=== PATIENT | male | born 1960 | race Caucasian/White ===

== ENCOUNTER 2018-05-24 12:23 | Observation (INO) | payer BC ==
[~2018-05-24] VITALS: Ht 172.7 cm; Wt 122.5 kg
[~2018-05-24 12:23] MED LIST: ASPIRIN325 MG PO; CALAN SR180 MG PO; FENOFIBRATE PO; FENOFIBRATE67 MG PO; NORCO 7.5-3251 EACH PO; TRICOR145 MG PO
[2018-05-24] MEDS ORDERED: NITROGLYCERIN 2% OINT 1 GM PKT TOP ONE (12:45)
[2018-05-24] MEDS ORDERED: METOPROLOL TARTRATE INJ 1 MG/ML VIAL IV SCH (12:45)
[2018-05-24] MEDS ORDERED: ONDANSETRON HCL INJ 2 MG/ML VIAL IV PRN ×2 (12:45→14:30)
[2018-05-24] MEDS ORDERED: FAMOTIDINE 20 MG/2 ML VIAL IV ONE (12:45)
[2018-05-24 12:57] LABS: BASOPHILS # (AUTO) 0.1 (0.0-0.1); BASOPHILS % 0.8 % (0.0-1.0); EOSINOPHILS # (AUTO) 0.2 (0.0-0.4); EOSINOPHILS % 1.2 % (0.0-6.0); HEMATOCRIT 46.1 % (38.2-49.6); HEMOGLOBIN 15.8 g/dL (14.0-18.0); LYMPHOCYTES # (AUTO) 1.5 (1.0-3.2); LYMPHOCYTES % 10.7 % (18.0-39.1); MEAN CORPUSCULAR HEMOGLOBIN 32.8 pg (28-32); MEAN CORPUSCULAR HGB CONC 34.3 g/dL (31-35); MEAN CORPUSCULAR VOLUME 95.6 fL (81-99); MONOCYTES # (AUTO) 1.3 (0.2-0.8); MONOCYTES % 9.5 % (4.4-11.3); NEUTROPHILS # (AUTO) 10.5 (2.1-6.9); NEUTROPHILS % 76.8 % (38.7-80.0); PLATELET COUNT 358 x10e3/uL (140-360); RED BLOOD COUNT 4.82 x10e6/uL (4.3-5.7); RED CELL DISTRIBUTION WIDTH 14.6 % (11.7-14.4)
[2018-05-24 13:19] LABS: ALANINE AMINOTRANSFERASE 21 IU/L (0-55); ALBUMIN 4.2 g/dL (3.5-5.0); ALBUMIN/GLOBULIN RATIO 1.1 (0.8-2.0); ALKALINE PHOSPHATASE 37 IU/L (40-150); AMYLASE 56 U/L (25-125); ANION GAP 15.5 mmol/L (8-16); BLOOD UREA NITROGEN 19 mg/dL (7-26); BUN/CREATININE RATIO 17 (6-25); CALCIUM 10.9 mg/dL (8.4-10.2); CARBON DIOXIDE 22 mmol/L (22-29); CHLORIDE 108 mmol/L (98-107); CREATININE, SERUM 1.09 mg/dL (0.72-1.25); EST GLOMERULAR FILTRATION RATE > 60 ML/MIN (60-); GLUCOSE 96 mg/dL (74-118); LIPASE 46 U/L (8-78); MAGNESIUM 2.2 MG/DL (1.3-2.1); POTASSIUM 3.5 mmol/L (3.5-5.1); SODIUM 142 mmol/L (136-145)
--- NOTE | 2018-05-24 13:24 | Diagnostic Imaging Report ---
PROCEDURE: CHEST SINGLE (PORTABLE) COMPARISON: None. INDICATIONS: CHEST PAIN FINDINGS: LUNGS: No consolidations or edema. PLEURA: No effusions or pneumothorax. HEART \T\ MEDIASTINUM: Prominent cardiomediastinal silhouette likely related to the technique. Prominent right epicardial fat pad. BONES \T\ SOFT TISSUES: No acute findings. CONCLUSION: No acute thoracic abnormality. Robson Nolasco D.O. Dictated by: Robson Nolasco D.O. on 05/24/2018 at 13:29 Electronically approved by: Robson Nolasco D.O. on 05/24/2018 at 13:29
[2018-05-24] MEDS ORDERED: ASPIRIN 325 MG TAB PO ONE (13:30)
[2018-05-24] MEDS ORDERED: ASPIRIN 81 MG CHEW TAB PO ONE ×3 (13:30→14:30)
[2018-05-24] MEDS ORDERED: ATORVASTATIN 20 MG TAB PO ONE (13:30)
[2018-05-24] MEDS: METOPROLOL TARTRATE 25 MG TAB PO SCH ×2 (13:47→20:02)
[2018-05-24] MEDS ORDERED: HYDROMORPHONE 1MG/1ML INJ IV PRN (14:30)
--- NOTE | 2018-05-24 14:33 | Consultation ---
DATE OF CONSULTATION: May 24, 2018 REQUESTING PHYSICIAN: Dr. Zepeda. REASON FOR CONSULTATION: Chest pain. HISTORY OF PRESENT ILLNESS: Mr. Levy is a 57-year-old gentleman with past medical history as listed below. Apparently has been experiencing chest pain since 8 a.m. today. States it is all across his chest, he is a little short of breath and so decided to see Dr. Zepeda. Did an EKG, EKG was okay but due to his history he was sent to the emergency room. Patient states that he still has some vague discomfort in his chest but a little bit better. His EKG shows sinus rhythm without any acute ST-T changes. Denies any abdominal pain, vomiting or diarrhea. He was short of breath. Patient states he has had pain in his back and chest. REVIEW OF SYSTEMS CONSTITUTIONAL: Has fatigue and weakness. HEENT: No headaches, blurring of vision, seizures, syncope. CARDIOVASCULAR: Has chest and pain in his back. Has dyspnea, no orthopnea, PND. Has leg edema. RESPIRATORY: No cough, fever or expectoration. GI: No abdominal pain, vomiting, diarrhea. : No dysuria, frequency, incontinence. ALLERGIES: NO KNOWN DRUG ALLERGIES. MEDICATIONS: see list. PAST MEDICAL HISTORY 1. History of hypertension. 2. History of hyperlipidemia. 3. History of leg edema. SOCIAL HISTORY: Does not smoke. He drinks a 6-pack a day and has been drinking for more than 30 years. SURGERY HISTORY: History of left knee surgery. FAMILY HISTORY: Noncontributory. PHYSICAL EXAMINATION GENERAL: Obese gentleman. Alert, oriented, not in obvious distress. VITALS: Heart rate is 73, blood pressure 177/94, respiratory rate 22, temperature 97.7. HEENT: Atraumatic. NECK: No JVD, bruit, thyromegaly or lymphadenopathy. CARDIOVASCULAR: First and second heart sounds heard. No murmurs, rubs or gallops appreciated. CHEST: Decreased air entry at the bases. No adventitious sounds appreciated. ABDOMEN: Obese, nontender. EXTREMITIES: No edema. LABORATORY DATA: WBC is 13.6, hemoglobin 15.8, hematocrit 46.1, platelets are 358. Sodium is 142, potassium 3.5, chloride 108. BUN is 19, creatinine 1.0. Glucose is 96. Total bilirubin 0.7. AST is 14, ALT is 21, alk phos is 37. Troponins are pending. BNP is 78. EKG shows sinus rhythm at 67 beats per minute, normal axis, normal intervals. No acute ST-T changes. IMPRESSION 1. Unstable angina. 2. History of hypertension. 3. History of hyperlipidemia. 4. Obesity. 5. History of alcohol use. PLAN 1. Follow serial cardiac enzymes. 2. Get echocardiogram to assess LV function and valvular function. 3. Aspirin, nitrates, statins. 4. Lovenox. 5. Further cardiac workup depending on clinical course. 6. Will get CT scan of his chest. Discussed my impression and plan of management with patient, and he understands. As always, I appreciate and thank you very much for this referral. Job#: [id number] ISAIAS
[2018-05-24] MEDS: FAMOTIDINE 20 MG/2 ML VIAL IV SCH (15:22)
[2018-05-24] MEDS ORDERED: PHENTERMINE H37.5 MG (15:48)
[2018-05-24] MEDS ORDERED: TOPIRAMATE100 MG PO (15:48)
[2018-05-24] MEDS ORDERED: ZOLPIDEM TARTRA10 MG PO (15:48)
--- NOTE | 2018-05-24 16:14 | Diagnostic Imaging Report ---
PROCEDURE: CT scan of the chest WITH intravenous contrast, using PE protocol. TECHNIQUE: The chest was scanned utilizing a multidetector helical scanner from the lung apex through the level of the adrenal glands after the IV administration of 67 cc of Isovue 370, with special concentration of the pulmonary arteries. Coronal and sagittal multiplanar reformations were obtained. COMPARISON: None. INDICATIONS: SHORTNESS OF BREATH, CHEST PAIN FINDINGS: Lines/tubes: None. Lungs and Airways: No filling defects in the main, right or left pulmonary arteries to their segmental level to suggest pulmonary embolism. Lungs are clear, without nodules, opacities, masses, or consolidation. Airways are clear, without bronchial lesions. Pleura: The pleural spaces are clear. Heart and mediastinum: There is unremarkable. Heart size is normal. Mild cardiomegaly with left ventricular hypertrophy. Aorta is non-aneurysmal. The main pulmonary artery measures 3.0 cm in caliber. Lymph nodes: No mediastinal, hilar, or axillary adenopathy. Abdomen: Limited contrast-enhanced views of the upper abdomen show no abnormality within the visualized liver, spleen, pancreas. The visualized portions of the adrenal glands are normal. Bones: No aggressive lytic lesions. Soft tissues are grossly unremarkable. IMPRESSION: 1. no CT evidence of pulmonary embolism. Lungs are grossly clear, without nodules, opacities, masses, or consolidation. 2. Mild cardiomegaly with left ventricular hypertrophy. Mata Garcia M.D. Dictated by: Mata Garcia M.D. on 05/24/2018 at 16:18 Electronically approved by: Mata Garcia M.D. on 05/24/2018 at 16:18
[2018-05-24 16:56] VITALS: BP 175/88
[2018-05-24 18:00] VITALS: BP 195/86
[2018-05-24] MEDS: CLONIDINE HCL 0.1 MG TAB PO PRN (18:32)
[2018-05-24 19:03] LABS: CREATINE KINASE < 70 IU/L (30-200)
[2018-05-24 19:59] VITALS: BP 166/88
[2018-05-24 20:00] VITALS: BP 166/88
[2018-05-24] MEDS: SIMVASTATIN 40 MG TAB PO SCH (20:04)
[2018-05-24] MEDS ORDERED: IOPAMIDOL 370 MG/ML 200 ML INFUS..BTL INJ ONE (20:06)
[2018-05-24] MEDS ORDERED: SODIUM CHLORIDE 0.9% 50ML 50 ML ONE (20:06)
[2018-05-24 21:24] LABS: CREATINE KINASE MB 0.9 ng/mL (0-5.0)
[2018-05-24 23:36] VITALS: BP 173/83
[2018-05-25] MEDS: CLONIDINE HCL 0.1 MG TAB PO PRN ×3 (01:08→20:10)
[2018-05-25] MEDS: FAMOTIDINE 20 MG/2 ML VIAL IV SCH ×2 (01:08→13:30)
[2018-05-25 05:22] VITALS: BP 170/86
[2018-05-25 05:25] LABS: BASOPHILS # (AUTO) 0.1 (0.0-0.1); BASOPHILS % 0.8 % (0.0-1.0); EOSINOPHILS # (AUTO) 0.1 (0.0-0.4); EOSINOPHILS % 1.4 % (0.0-6.0); HEMATOCRIT 41.2 % (38.2-49.6); HEMOGLOBIN 13.9 g/dL (14.0-18.0); LYMPHOCYTES # (AUTO) 1.8 (1.0-3.2); LYMPHOCYTES % 18.3 % (18.0-39.1); MEAN CORPUSCULAR HEMOGLOBIN 32.5 pg (28-32); MEAN CORPUSCULAR HGB CONC 33.7 g/dL (31-35); MEAN CORPUSCULAR VOLUME 96.3 fL (81-99); MONOCYTES % 10.3 % (4.4-11.3); NEUTROPHILS # (AUTO) 6.7 (2.1-6.9); NEUTROPHILS % 68.5 % (38.7-80.0); PLATELET COUNT 275 x10e3/uL (140-360); RED BLOOD COUNT 4.28 x10e6/uL (4.3-5.7); RED CELL DISTRIBUTION WIDTH 14.6 % (11.7-14.4)
[2018-05-25 05:44] LABS: ALANINE AMINOTRANSFERASE 17 IU/L (0-55); ALBUMIN 3.5 g/dL (3.5-5.0); ALBUMIN/GLOBULIN RATIO 1.3 (0.8-2.0); ALKALINE PHOSPHATASE 30 IU/L (40-150); ANION GAP 12.8 mmol/L (8-16); BLOOD UREA NITROGEN 18 mg/dL (7-26); BUN/CREATININE RATIO 18 (6-25); CALCIUM 9.8 mg/dL (8.4-10.2); CARBON DIOXIDE 23 mmol/L (22-29); CHLORIDE 110 mmol/L (98-107); CREATINE KINASE 66 IU/L (30-200); CREATININE, SERUM 1.01 mg/dL (0.72-1.25); EST GLOMERULAR FILTRATION RATE > 60 ML/MIN (60-); GLUCOSE 106 mg/dL (74-118); POTASSIUM 3.8 mmol/L (3.5-5.1); SODIUM 142 mmol/L (136-145)
[2018-05-25 06:22] LABS: CHOL/HDL RATIO 3.7 (3.9-4.7)
[2018-05-25 08:13] VITALS: BP 191/88
[2018-05-25] MEDS: VALSARTAN 160 MG TAB PO SCH (09:14)
[2018-05-25] MEDS: METOPROLOL TARTRATE 25 MG TAB PO SCH ×2 (09:14→20:50)
[2018-05-25 12:20] VITALS: BP 195/94
[2018-05-25] MEDS: AMLODIPINE BESYLATE 10 MG TAB PO SCH (17:14)
[2018-05-25 18:07] VITALS: BP 184/101
[2018-05-25 20:00] VITALS: BP 179/71
[2018-05-25] MEDS: SIMVASTATIN 40 MG TAB PO SCH (20:24)
[2018-05-25] MEDS: TOPIRAMATE 25 MG TAB PO SCH (20:51)
[2018-05-25] MEDS ORDERED: ZOLPIDEM TARTRATE 10 MG TAB PO SCH (21:00)
[2018-05-26] VITALS: BP 170/80
[2018-05-26] MEDS: FAMOTIDINE 20 MG/2 ML VIAL IV SCH (02:30)
[2018-05-26] MEDS: CLONIDINE HCL 0.1 MG TAB PO PRN (02:56)
[2018-05-26 04:00] VITALS: BP 137/74
[2018-05-26] MEDS ORDERED: DIOVAN160 MG PO (08:40)
[2018-05-26] MEDS ORDERED: ATORVASTATIN CA20 MG PO (08:40)
[2018-05-26] MEDS ORDERED: AMLODIPINE BESY10 MG PO (08:41)
[2018-05-26] MEDS ORDERED: METOPROLOL SUCC25 MG PO (08:46)
[2018-05-26] MEDS ORDERED: VERAPAMIL HCL 180 MG TBER PO SCH (09:00)
[2018-05-26] MEDS ORDERED: AMLODIPINE BESYLATE 10 MG TAB PO SCH (09:00)
[2018-05-26] MEDS: METOPROLOL TARTRATE 25 MG TAB PO SCH (09:00)
[2018-05-26] MEDS: AMLODIPINE BESYLATE 10 MG TAB PO SCH (09:00)
[2018-05-26 09:31] VITALS: BP 121/59
[2018-05-26] MEDS: VALSARTAN 160 MG TAB PO SCH (09:37)
[2018-05-26] MEDS: TOPIRAMATE 25 MG TAB PO SCH (09:38)
[2018-05-26 10:21] VITALS: BP 124/60
== END 2018-05-26 10:21 | disposition home or self-care (01) ==
LOC: ER 12:23 → ERHOLD 15:31 → INTOOBSV 15:31 → MED/SURG 16:45
PROVIDERS: ADMIT Internal Medicine; ATTEND Internal Medicine
DX: R07.89 Other chest pain (principal); K21.9 Gastro-esophageal reflux disease without esophagitis; I10 Essential (primary) hypertension; E78.5 Hyperlipidemia, unspecified; E66.01 Morbid (severe) obesity due to excess calories; Z68.41 Body mass index [BMI] 40.0-44.9, adult
CPT/HCPCS: 36415 ×2; 71045; 71260; 80053 ×2; 80061; 82150; 82550 ×2; 82553 ×2; 83690; 83735; 83880; 84484 ×2; 85025 ×2; 85379; 93005 ×2; 93306; 93970; 99284; G0378 ×3; Q9967

== ENCOUNTER 2019-03-26 05:56 | Inpatient (IN) | payer BC ==
[~2019-03-26] VITALS: Ht 172.7 cm; Wt 125.6 kg
[~2019-03-26 05:56] MED LIST changes: +AMLODIPINE BESY10 MG PO; +ATORVASTATIN CA20 MG PO; +CLONIDINE HCL0.2 MG PO; +DIOVAN160 MG PO; +LOSARTAN POTASS25 MG PO; +MELOXICAM7.5 MG PO; +METOPROLOL SUCC25 MG PO; +PHENTERMINE H37.5 MG; +TOPIRAMATE100 MG PO; +ULTRAM50 MG PO; +ZOLPIDEM TARTRA10 MG PO
[2019-03-26] MEDS ORDERED: CELECOXIB 200 MG CAP ONE (06:19)
[2019-03-26] MEDS ORDERED: DEXAMETHASONE SOD PHOS 10 MG/1 ML VIAL ONE (06:19)
[2019-03-26] MEDS ORDERED: CEFAZOLIN SOD 2 GM/D5W 50ML 50 ML IV ONE (06:19)
[2019-03-26] MEDS ORDERED: GABAPENTIN 300 MG CAP ONE (06:19)
[2019-03-26] MEDS ORDERED: SODIUM CHLORIDE 0.9% 500ML 500 ML ONE (06:22)
[2019-03-26] MEDS ORDERED: VANCOMYCIN HCL 1,000 MG ONE (06:22)
[2019-03-26] MEDS ORDERED: BACITRACIN 50,000 UNIT VIAL ONE (06:23)
[2019-03-26] MEDS ORDERED: TRANEXAMIC ACID 1,000 MG/10 ML ML ONE (06:23)
--- NOTE | 2019-03-26 07:05 | NUR ---
SPIRITUAL CARE - Pre-Surgery Assessment: Pt in bed. Pt's at bedside. Pt reported supportive attention from family and friends. Intervention: I provided pastoral presence, hospitality, and sympathetic listening. I acquainted pt with availability of computing tutor while hospitalized. Outcome: Pt expressed appreciation for visit. No need for follow up indicated at this time. CLARITA Ramirezlain Spiritual Care Department O: [phone] Pager: [phone] ([phone] calling from)
[2019-03-26] MEDS ORDERED: ROPIVACAINE 246.25 MG, EPINEPHRINE HCL 1:1000 1ML 0.5 MG, CLONIDINE HCL 0.08 MG, KETORO... INJ ONE ×5 (07:30)
[2019-03-26] MEDS: SODIUM CHLORIDE 0.9% 1000ML 1,000 ML IV SCH ×2 (09:27→19:59)
[2019-03-26] MEDS ORDERED: DOCUSATE SODIUM 100 MG CAP PO PRN (09:30)
[2019-03-26] MEDS ORDERED: HYDROCODONE/APAP 7.5MG-325MG 1 EA TAB PO PRN (09:30)
[2019-03-26] MEDS ORDERED: KETOROLAC TROMETHAMINE 30 MG/ML VIAL IV PRN (09:30)
[2019-03-26] MEDS ORDERED: PROMETHAZINE HCL (IM) 25 MG/ML VIAL IM PRN (09:30)
[2019-03-26] MEDS ORDERED: ONDANSETRON HCL INJ 2MG/ML 2ML 2 MG/ML VIAL IV PRN (09:30)
[2019-03-26] MEDS ORDERED: DIPHENHYDRAMINE HCL INJ 50 MG/ML VIAL IM/IV PRN (09:30)
[2019-03-26] MEDS ORDERED: ACETAMINOPHEN 650 MG SUPP PR PRN (09:30)
[2019-03-26] MEDS ORDERED: FENTANYL CITRATE/PF 100MCG/2 ML INJ ONE ×2 (10:01→17:54)
--- NOTE | 2019-03-26 10:36 | NUR ---
ARRIVED VIA STRETCHER FROM PACU, AA&OX3, 2LNC IN PLACE, RIGHT HIP DRESSING INTACT, SMALL AMOUNT OF DRAINAGE NOTED ON END OF DRESSING, DTV, BILAT FOOT PUMPS PLACED PER MD ORDER, DENIES PAIN AT THIS TIME, ORIENTED TO ROOM AND CALL LIGHT SYSTEM, CALL LIGHT WITHIN REACH
[2019-03-26 11:02] VITALS: BP 147/73
[2019-03-26 11:07] VITALS: BP 147/73
[2019-03-26 12:00] VITALS: BP 144/80
[2019-03-26] MEDS: ACETAMINOPHEN 1000 MG/100 ML IV SCH ×4 (12:39→23:59)
--- NOTE | 2019-03-26 13:13 | Diagnostic Imaging Report ---
Right hip radiograph-1 view History: Postoperative radiograph. Findings: Status post right total hip arthroplasty with prosthetic components in anatomic alignment. Hardware appears intact. Overlying subcutaneous emphysema and surgical skin walker are present. Limited visualization of the left hip and pelvis secondary to portable technique and soft tissue attenuation. No evidence of acute osseous abnormality. IMPRESSION: Status post right total hip arthroplasty in anatomic position. Signed by: Dr. Moises Moore MD on 03/26/2019 1:10 PM
--- NOTE | 2019-03-26 15:10 | NUR ---
VOICES NO NEEDS AT THIS TIME, CALL LIGHT WITHIN REACH
[2019-03-26 16:28] VITALS: BP 133/75
--- NOTE | 2019-03-26 16:42 | Operative Report ---
DATE OF PROCEDURE: 03/26/2019 SURGEON: Rajat Snyder MD AGENCY SERVICE COORDINATOR: Chandu Cano PA-C. PREOPERATIVE DIAGNOSIS: Osteoarthritis, right hip. POSTOPERATIVE DIAGNOSIS: Osteoarthritis, right hip. PROCEDURE: Right total hip arthroplasty (added complexity secondary to BMI greater than 42). INDICATIONS: The patient is a 58-year-old gentleman, who has advanced osteoarthritis of his right hip. He has failed conservative management and would like to proceed with a right total hip replacement. The added potential for complications due to his BMI have been discussed multiple times. He has given a reasonable effort to lose weight. He feels he would like to proceed with the replacement and accepts the potential increase in risk. PROCEDURE IN DETAIL: The patient was brought to the operating room and placed under general anesthetic. He was positioned in the left lateral decubitus position. He received tranexamic acid and prophylactic antibiotics in the holding area. His right hip was prepped and draped in a sterile manner. Due to his body mass index over 42, added time and personnel were needed for positioning and prepping and draping. A preoperative time-out was performed. A posterior approach was made to the right hip. Hemostasis was obtained with electrocautery. A deep self-retaining Charnley retractor was placed. The posterior capsule was carefully exposed. Care was taken to avoid injury to the sciatic nerve. Further hemostasis along the posterior capsule was obtained with electrocautery. The piriformis and the short external rotators were released. The posterior capsule was released and preserved for later repair. The hip was dislocated. Complete loss of articular cartilage of the superior dome of the femoral head was noted. An oscillating saw was used to resect the femoral head. Acetabular retractors were then carefully placed. A long-handled knife was used to remove the remnant of the labrum. The true floor of the acetabulum was established with a 46 mm reamer. The socket was then sequentially reamed up to 57 mm. This accomplished bleeding hemispherical cancellous bone. A [employer] OsseoTi 58 mm outer diameter socket was chosen. The hip was thoroughly irrigated with a shower tip pulsatile lavage as well as a spray bottle with a diluted mixture of polymyxin and vancomycin. A portion of a 100 mL premixed pericapsular SUSY injection was placed around the capsule. The socket was then impacted into place. Good fixation was felt to be obtained. Fixation was augmented with a single 25 mm cancellous screw placed into the ilium. A highly cross-linked polyethylene liner with no posterior elevation was then seated into place. Care was taken to make sure that there was no evidence of soft tissue interposition. The socket was then packed with a moistly soaked lap sponge while attention was directed towards the proximal femur. A box cutting osteotome and taper pin reamer were used to establish entry to the femoral canal. The taper lock broaches were impacted. A size 17 stem was necessary to provide good canal fill and rotational stability. Trial reductions were performed. A standard 36 mm head and neck were felt to provide appropriate faith of limb length, stability, and soft tissue balancing. The trial implants were removed. The hip was further irrigated with a shower tip pulsatile lavage in diluted polymyxin and vancomycin. The implant was seated and the head was placed onto the stem. A final reduction was performed. The posterior capsule was carefully repaired with interrupted #2 Ethibond. 500 mg of vancomycin powder were placed around the socket. The tensor fascia and gluteal fascia were closed with interrupted #2 Ethibond. The skin was closed with subcuticular Vicryl and walker. A sterile Aquacel bandage was applied. The patient was returned to the supine position, extubated and transported to the recovery room in stable condition. Estimated blood loss was 100 mL. All needle and sponge counts were correct. Rajat Snyder MD DR/THIAGO /[id number]
[2019-03-26] MEDS: ASPIRIN 325 MG TAB PO SCH (16:44)
[2019-03-26] MEDS: CEFAZOLIN SOD 1 GM/NS 50ML 50 ML IV SCH ×2 (16:44→23:59)
[2019-03-26] MEDS: CELECOXIB 200 MG CAP PO SCH (16:44)
[2019-03-26] MEDS ORDERED: CELECOXIB 100 MG CAP PO SCH (17:00)
[2019-03-26] MEDS ORDERED: ROCURONIUM BROMIDE 10 MG/ML 5ML VIAL ONE (17:49)
[2019-03-26] MEDS ORDERED: SUCCINYLCHOLINE 200 MG/10 ML SYR ONE (17:49)
[2019-03-26] MEDS ORDERED: PROPOFOL IV EMULSION 10 MG/ML 20 ML VIAL ONE (17:49)
[2019-03-26] MEDS ORDERED: LIDOCAINE HCL 2% LOCAL INJ 5 ML SDV VIAL INJ ONE (17:49)
[2019-03-26] MEDS ORDERED: SEVOFLURANE INHAL SOLN 250 ML PEN BTL ONE (17:49)
[2019-03-26] MEDS ORDERED: ACETAMINOPHEN 1000 MG/100 ML IV ONE (17:49)
[2019-03-26] MEDS ORDERED: HYDRALAZINE HCL 20 MG/ML VIAL ONE (17:49)
[2019-03-26] MEDS ORDERED: KETOROLAC TROMETHAMINE 30 MG/ML VIAL ONE (17:49)
[2019-03-26] MEDS ORDERED: MIDAZOLAM HCL 2 MG/2 ML VIAL ONE (17:54)
--- NOTE | 2019-03-26 18:06 | NUR ---
SPOKE WITH MD LAWSON, AWARE OF CONSULT, HOME MEDICATIONS RENEWED, PT TOLERATING DINNER AT THIS TIME, VOIDING WITHOUT DIFFICULTY, CALL LIGHT WITHIN REACH
[2019-03-26] MEDS ORDERED: CLONIDINE HCL 0.2 MG TAB PO SCH (18:15)
--- NOTE | 2019-03-26 18:54 | NUR ---
WALKING ROUNDS PERFORMED, RECEIVED PT LAYING SEMI FOWLERS IN BED, AAOX3, RR EVEN AND NON-LABORED, ON ROOM AIR. NO S/SX OF DISTRESS NOTED. AQUACEL DRESSING TO (R) HIP NOTED TO BE CDI. ABDUCTOR PILLOW IN PLACE BETWEEN BILATERAL LOWER EXTREMITIES. LEFT PT LAYING SEMI FOWLERS IN BED, BED IN LOW LOCKED POSITION, SIDE RAILS UPX2, CALL LIGHT AND PHONE WITHIN REACH.
[2019-03-26] MEDS ORDERED: CLONIDINE HCL 0.2 MG TAB PO PRN (19:00)
[2019-03-26 20:00] VITALS: BP 139/81
[2019-03-26] MEDS ORDERED: ZOLPIDEM TARTRATE 5 MG TAB PO PRN (21:00)
[2019-03-26] MEDS ORDERED: ATORVASTATIN 20 MG TAB PO SCH (21:00)
[2019-03-26] MEDS ORDERED: LOSARTAN POTASSIUM 25 MG TAB PO SCH (21:00)
[2019-03-26] MEDS ORDERED: ZOLPIDEM TARTRATE 10 MG TAB PO PRN (21:00)
[2019-03-26] MEDS: HYDROCODONE/APAP 5MG-325MG TAB PO PRN (21:27)
[2019-03-26 21:42] VITALS: BP 139/81
[2019-03-27] VITALS: BP 159/73
[2019-03-27 04:00] VITALS: BP 150/78
[2019-03-27] MEDS: HYDROCODONE/APAP 5MG-325MG TAB PO PRN (04:40)
--- NOTE | 2019-03-27 04:46 | NUR ---
APPLIED (R) LEG HEMA HOSE.
[2019-03-27] MEDS: SODIUM CHLORIDE 0.9% 1000ML 1,000 ML IV SCH (05:27)
--- NOTE | 2019-03-27 07:00 | NUR ---
PT RESTING IN BED AA0X3. PT DENIES PAIN AT THIS TIME. OBSERVED SITE ON RIGHT HIP S.P RIGHT HIP SX. DRESSING IS DRY AND INTACT BRUISING SURROUNDING DRESSING NOTED. ABDUCTOR PILLOW AND FOOT PUMPS ON. BILATERAL HEMA HOLES PRESENT. RIGHT HAND DRY PATENT AND INTACT IS AT BEDSIDE WILL CONTINUE TO MONITOR AT THIS TIME, SIDE RAILSX2, BED WHEELS LOCKED, CALL LIGHT IS WITHIN EASY REACH, INSTRUCTED TO CALL FOR ASSISTANCE IF NEEDED
[2019-03-27 07:12] LABS: HEMATOCRIT 43.6 % (38.2-49.6); HEMOGLOBIN 14.6 g/dL (14.0-18.0)
[2019-03-27 07:50] VITALS: BP 165/86
[2019-03-27 08:26] VITALS: BP 165/86
[2019-03-27] MEDS: ASPIRIN 325 MG TAB PO SCH (08:26)
[2019-03-27] MEDS: CELECOXIB 200 MG CAP PO SCH (08:26)
[2019-03-27] MEDS ORDERED: ASPIRIN325 MG PO (08:52)
[2019-03-27] MEDS ORDERED: VERAPAMIL HCL 180 MG TBER PO SCH (09:00)
[2019-03-27] MEDS ORDERED: TOPIRAMATE 100 MG TAB PO SCH (09:00)
[2019-03-27] MEDS ORDERED: ONDANSETRON HCL 4 MG ORAL DISINTEGRATING TAB PO PRN (09:15)
[2019-03-27] MEDS ORDERED: ACETAMINOPHEN 1000 MG/100 ML IV PRN (09:30)
[2019-03-27] MEDS: CEFAZOLIN SOD 1 GM/NS 50ML 50 ML IV SCH (09:32)
[2019-03-27] MEDS ORDERED: NORCO 7.5-3251 EACH PO (11:40)
--- NOTE | 2019-03-27 11:45 | Consultation ---
DATE OF CONSULTATION: REASON FOR CONSULTATION: Postop medical management. HISTORY OF PRESENT ILLNESS: The patient is a 58-year-old gentleman, who is status post right hip arthroplasty for end-stage osteoarthritis of the right hip. He is doing very well, but noted very minimal right hip pain and denies any chest pain, fever, chills, nausea, vomiting, headache, shortness of breath or dizziness on review of systems. PAST MEDICAL HISTORY: Hypertension, hyperlipidemia. MEDICATIONS: See MAR. ALLERGIES: NONE. SOCIAL HISTORY: Nonsmoker, nondrinker. Lives at home with his , has 2 kids. FAMILY HISTORY: Hypertension. PHYSICAL EXAMINATION: VITAL SIGNS: Temperature 97.9, pulse 68, blood pressure 139/73, sats are 95% on room air. GENERAL: He is in no apparent distress, lying in bed. NECK: Supple. CARDIOVASCULAR: Regular rate and rhythm. LUNGS: Clear to auscultation bilaterally. ABDOMEN: Good bowel sounds. Soft and nontender. EXTREMITIES: No clubbing or cyanosis. NEUROLOGIC: Nonfocal. ASSESSMENT AND PLAN: 1. Status post right total hip arthroplasty. Continue with his pain control and physical therapy. 2. Anemia. Check a CBC. 3. Hyperlipidemia. Continue with his home medication. 4. Hypertension. Continue with his home medication and monitor his blood pressure. Please see hospital chart for details. MD ENRIQUE Holloway/THIAGO /[id number]
[2019-03-27 11:53] VITALS: BP 163/74
--- NOTE | 2019-03-27 14:08 | NUR ---
DISCHARGE INSTRUCTIONS GIVEN AND PRESCRIPTIONS. PT VERBALIZED UNDERSTANDING IV DC PRESSURE DRESSING APPLIED AND TAPED. PT IS NOW OFF UNIT TO HOME AT THIS TIME
== END 2019-03-27 14:08 | disposition home health service (06) | DRG 470 ==
LOC: OR 05:56 → PACU V 09:29 → MED/SURG 10:43
PROVIDERS: ADMIT Specialist; ATTEND Specialist
PROC: 0SRC06A Replacement of Right Knee Joint with Oxidized Zirconium on Polyethylene Synthetic Substitute, Uncemented, Open Approach (ICD-10-PCS; principal; 2019-03-26 08:00)
DX: M16.11 Unilateral primary osteoarthritis, right hip (principal); Z68.41 Body mass index [BMI] 40.0-44.9, adult; D64.9 Anemia, unspecified; E78.5 Hyperlipidemia, unspecified; I10 Essential (primary) hypertension
CPT/HCPCS: 36415; 72170; 85014; 85018; 86850; 86900; 86920; 93005; C1713; J0171; J0360; J0690; J1100; J1885; J2001; J2250; J2795; J3370; J7030; J7040

== ENCOUNTER 2023-02-20 05:15 | Observation (INO) | payer BC, OTHER ==
[2023-02-17 10:40] LABS: BASOPHILS # (AUTO) 0.1 (0.0-0.1); BASOPHILS % 0.8 % (0.0-1.0); EOSINOPHILS # (AUTO) 0.1 (0.0-0.4); EOSINOPHILS % 0.8 % (0.0-6.0); HEMATOCRIT 50.2 % (38.2-49.6); HEMOGLOBIN 16.8 g/dL (14.0-18.0); LYMPHOCYTES # (AUTO) 1.6 (1.0-3.2); LYMPHOCYTES % 15.5 % (18.0-39.1); MEAN CORPUSCULAR HEMOGLOBIN 34.6 pg (28-32); MEAN CORPUSCULAR HGB CONC 33.5 g/dL (31-35); MEAN CORPUSCULAR VOLUME 103.3 fL (81-99); MONOCYTES # (AUTO) 0.8 (0.2-0.8); MONOCYTES % 7.8 % (4.4-11.3); NEUTROPHILS # (AUTO) 7.5 (2.1-6.9); NEUTROPHILS % 74.3 % (38.7-80.0); PLATELET COUNT 262 x10e3/uL (140-360); RED BLOOD COUNT 4.86 x10e6/uL (4.3-5.7); RED CELL DISTRIBUTION WIDTH 12.5 % (11.7-14.4)
[~2023-02-20] VITALS: Ht 172.7 cm; Wt 117.5 kg
[~2023-02-20 05:15] MED LIST changes: +FENTANYL CITRATE/PF 100MCG/2 ML INJ ONE
[2023-02-20] MEDS ORDERED: CELECOXIB 200 MG CAP ONE (05:36)
[2023-02-20] MEDS ORDERED: LACTATED RINGER'S 1,000 ML ONE (05:37)
[2023-02-20] MEDS ORDERED: DEXAMETHASONE SOD PHOS 10 MG/1 ML VIAL ONE ×2 (05:37→13:36)
[2023-02-20] MEDS ORDERED: CEFAZOLIN SODIUM 2 GM ONE (05:37)
[2023-02-20] MEDS ORDERED: GABAPENTIN 300 MG CAP ONE (05:37)
[2023-02-20] MEDS ORDERED: TRANEXAMIC ACID 20 ML ONE (06:20)
[2023-02-20] MEDS ORDERED: Vancomycin IV 1,000 MG ONE (06:20)
[2023-02-20] MEDS ORDERED: SODIUM CHLORIDE 0.9% 500ML 500 ML ONE (06:20)
[2023-02-20] MEDS ORDERED: MIDAZOLAM HCL 2 MG/2 ML VIAL ONE (06:43)
[2023-02-20] MEDS ORDERED: FENTANYL CITRATE/PF 100MCG/2 ML INJ ONE ×2 (06:43→08:21)
[2023-02-20] MEDS ORDERED: SODIUM CHLORIDE 0.9% 100 ML ONE (06:54)
[2023-02-20] MEDS ORDERED: ROPIVACAINE 246.25 MG, EPINEPHRINE HCL 1:1000 1ML 0.5 MG, CLONIDINE HCL 0.08 MG, KETORO... INJ ONE ×5 (07:30)
[2023-02-20] MEDS ORDERED: KETOROLAC TROMETHAMINE 30 MG/ML VIAL IV PRN (08:15)
[2023-02-20] MEDS ORDERED: HYDROCODONE/APAP 7.5MG-325MG 1 EA TAB PO PRN (08:15)
[2023-02-20] MEDS ORDERED: ZOLPIDEM TARTRATE 5 MG TAB PO PRN (08:15)
[2023-02-20] MEDS ORDERED: ACETAMINOPHEN 650 MG SUPP PR PRN (08:15)
[2023-02-20] MEDS ORDERED: DOCUSATE SODIUM 100 MG CAP PO PRN (08:15)
[2023-02-20] MEDS: SODIUM CHLORIDE 0.9% 1000ML 1,000 ML IV SCH ×2 (08:15→17:43)
[2023-02-20] MEDS ORDERED: ONDANSETRON HCL INJ 2MG/ML 2ML 2 MG/ML VIAL IV PRN (08:15)
[2023-02-20] MEDS ORDERED: HYDROCODONE/APAP 5MG-325MG TAB PO PRN (08:15)
[2023-02-20] MEDS ORDERED: DIPHENHYDRAMINE HCL INJ 50 MG/ML VIAL IV PRN (08:15)
[2023-02-20] MEDS ORDERED: FENTANYL CITRATE/PF 100MCG/2 ML INJ IV ONE (08:17)
[2023-02-20] MEDS ORDERED: HYDROMORPHONE 1MG/1ML INJ ONE (08:35)
[2023-02-20] MEDS: ASPIRIN 325 MG TAB PO SCH ×2 (09:00→16:00)
[2023-02-20 11:10] VITALS: BP 156/74
[2023-02-20 11:15] VITALS: BP 156/74
[2023-02-20 12:38] VITALS: BP 156/74
[2023-02-20] MEDS ORDERED: LIDOCAINE HCL 2% LOCAL INJ 5 ML SDV VIAL INJ ONE (12:49)
[2023-02-20] MEDS ORDERED: POVIDONE IODINE 0.05% 0.05 % ML PO ONE (12:49)
[2023-02-20] MEDS ORDERED: KETOROLAC TROMETHAMINE 30 MG/ML VIAL ONE (12:49)
[2023-02-20] MEDS ORDERED: SEVOFLURANE INHAL SOLN 250 ML PEN BTL ONE (12:49)
[2023-02-20] MEDS ORDERED: DEXAMETHASONE SOD PHOS INJ 4 MG/ML SDV ONE (12:49)
[2023-02-20] MEDS ORDERED: ONDANSETRON HCL INJ 2MG/ML 2ML 2 MG/ML VIAL ONE (12:49)
[2023-02-20] MEDS ORDERED: PROPOFOL IV EMULSION 10 MG/ML 20 ML VIAL ONE (12:49)
[2023-02-20] MEDS ORDERED: ROPIVACAINE 0.5% 5 MG/ML 30 ML SDV ONE (13:36)
[2023-02-20 15:58] VITALS: BP 152/82
[2023-02-20] MEDS ORDERED: CELECOXIB 200 MG CAP PO SCH (17:00)
[2023-02-21] MEDS ORDERED: ACETAMINOPHEN 1000 MG/100 ML IV PRN (08:15)
== END 2023-02-20 20:25 | disposition home health service (06) ==
LOC: OR 05:15 → PACU V 08:12 → MED/SURG 11:10
PROVIDERS: ADMIT Specialist; ATTEND Specialist
DX: M17.0 Bilateral primary osteoarthritis of knee (principal); M16.0 Bilateral primary osteoarthritis of hip; Z96.652 Presence of left artificial knee joint; Z96.641 Presence of right artificial hip joint; I10 Essential (primary) hypertension
CPT/HCPCS: 0223U; 27447; 36415; 73560; 85025; 86850; 86900; 86920; 94799; 97116 ×2; 97161; 97530; C1713 ×3; C1776; G0378; J0171; J0690; J1100 ×2; J1170; J1885; J2001; J2250; J2405; J2704; J2795; J3010 ×2; J3370; J7030; J7040; J7050; J7121

== ENCOUNTER 2023-04-05 13:57 | Outpatient (RCR) | payer OTHER ==
[~2023-04-05 13:57] MED LIST changes: -FENTANYL CITRATE/PF 100MCG/2 ML INJ ONE
== END 2023-04-19 ==
LOC: PT 13:57
PROVIDERS: ATTEND Physician Assistant
DX: Z47.1 Aftercare following joint replacement surgery (principal); Z96.651 Presence of right artificial knee joint